=== PATIENT | female | born 2000 | race Caucasian/White ===

== ENCOUNTER 2020-06-01 06:19 | Emergency (ER) | payer BC ==
[~2020-06-01] VITALS: Ht 162.6 cm; Wt 86.4 kg
[2020-06-01 06:24] VITALS: BP 122/80; PULSE 72; TEMP 98.5
== END 2020-06-01 06:56 | disposition home or self-care (01) ==
LOC: COL.ER 06:19
DX: M62.838 Other muscle spasm (principal); M43.6 Torticollis